=== PATIENT | female | born 1965 | race Caucasian/White ===

== ENCOUNTER 2019-11-17 09:23 | Emergency (ER) | payer SELFPAY ==
[~2019-11-17] VITALS: Ht 160 cm; Wt 61.2 kg
[2019-11-17 09:33] VITALS: BP 133/84
[2019-11-17] MEDS ORDERED: HYDROcodone-ACET 5/325MG TAB PO ONE (10:30)
== END 2019-11-17 10:52 | disposition home or self-care (01) ==
LOC: ER 09:23
DX: S22.42XA Multiple fractures of ribs, left side, initial encounter for closed fracture (principal); X58.XXXA Exposure to other specified factors, initial encounter; Y93.89 Activity, other specified; Y92.89 Other specified places as the place of occurrence of the external cause; Y99.8 Other external cause status
CPT/HCPCS: 71101